=== PATIENT | female | born 1960 ===

== ENCOUNTER 2020-11-20 08:29 | Emergency (ER) | payer OTHER ==
[~2020-11-20] VITALS: Ht 157.5 cm; Wt 65.8 kg
[~2020-11-20 08:29] MED LIST: PROTONIX40 MG PO; TRAMADOL HCL-AP1 TAB PO; ZANTAC300 MG PO
[2020-11-20] MEDS ORDERED: PROAIR HFA8.5 GM (08:40)
[2020-11-20] MEDS ORDERED: PREVACID15 MG (08:41)
== END 2020-11-20 13:46 | disposition home or self-care (01) ==
LOC: ER 08:29
DX: J45.998 Other asthma (principal); Z11.52 Encounter for screening for COVID-19